=== PATIENT | female | born 1960 | race Caucasian/White ===

== ENCOUNTER 2019-04-26 08:45 | Observation (INO) ==
--- NOTE | 2019-04-19 11:51 | PAT Medication Instructions ---
Medication Instructions Date of Service April 19, 2019 Home Medications [Calcium 600 + D(3)] 1 cap PO BID diclofenac sodium 75 mg PO BID docusate sodium [Stool Softener] 250 mg PO BID folic acid 1 mg PO TID hydrocodone-acetaminophen 0.5 tab PO Q6H PRN methotrexate sodium 10 mg PO WK [Multivitamin Women 50 Plus] 1 tab PO QAM multivitamin 1 tab PO QAM prednisone 1 mg PO QAM prednisone 5 mg PO QPM tramadol 50 mg PO Q6H PRN ASK your surgeon for instructions diclofenac sodium 75 mg PO BID ASK your prescriber and surgeon methotrexate sodium 10 mg PO WK DO NOT take the morning of surgery [Calcium 600 + D(3)] 1 cap PO BID docusate sodium [Stool Softener] 250 mg PO BID folic acid 1 mg PO TID [Multivitamin Women 50 Plus] 1 tab PO QAM multivitamin 1 tab PO QAM Take morning of surgery With a small sip of water, OTHERWISE NOTHING TO EAT OR DRINK AFTER MIDNIGHT: hydrocodone-acetaminophen 0.5 tab PO Q6H PRN (if needed, may be taken up to four hours before surgery) prednisone 1 mg PO QAM tramadol 50 mg PO Q6H PRN (if needed, may be taken up to four hours before surgery) Take evening before surgery [Calcium 600 + D(3)] 1 cap PO BID diclofenac sodium 75 mg PO BID docusate sodium [Stool Softener] 250 mg PO BID folic acid 1 mg PO TID hydrocodone-acetaminophen 0.5 tab PO Q6H PRN (if needed) prednisone 5 mg PO QPM tramadol 50 mg PO Q6H PRN (if needed) Other Notes If you have any questions please call us at [phone] or [phone] or [phone] or [phone]
--- NOTE | 2019-04-19 12:04 | Anesthesiology Consultation ---
Date of Service April 19, 2019 Assessment & Plan (1) Encounter for pre-operative examination: *possible difficult intubation based on exam* Chart Review Chart Review: Acceptable Risk for Surgery and Patient seen in Pre Admission T pradeeping Teaching & Discussion Instructed NPO after midnight before surgery, except medications with 15 cc of water. Medication instructions provided according to the PAT guidelines. History Surgery Operation Date: 04/26/19 10:20 Proposed Procedures p L3-L4, L4-L5, L5-S1 Laminectomy - Elmer Manning DO Height/Weight Height: 5 ft 2 in Weight: 55.9 kg Allergies Allergy/AdvReac Type Severity Reaction Status Date / Time oxycodone Allergy Mild Urticaria Verified 12/17/14 10:51 Medications Home Medications Medication Instructions Recorded Confirmed Last Taken calcium carbonate-vitamin D3 1 cap PO BID 04/13/19 04/13/19 Unknown [Calcium 600 + D(3)] diclofenac sodium 75 mg PO BID 04/13/19 04/13/19 Unknown docusate sodium [Stool Softener] 250 mg PO BID 04/13/19 04/13/19 Unknown folic acid 1 mg PO TID 04/13/19 04/13/19 Unknown hydrocodone-acetaminophen 0.5 tab PO Q6H PRN 04/13/19 04/13/19 Unknown methotrexate sodium 10 mg PO WK 04/13/19 04/13/19 Unknown [id number]-zsd-owox-FA-lutein 1 tab PO QAM 04/13/19 04/13/19 Unknown [Multivitamin Women 50 Plus] multivitamin 1 tab PO QAM 04/13/19 04/13/19 Unknown prednisone 1 mg PO QAM 04/13/19 04/13/19 Unknown prednisone 5 mg PO QPM 04/13/19 04/13/19 Unknown tramadol 50 mg PO Q6H PRN 04/13/19 04/13/19 Unknown Past Medical History Medical History Degenerative disc disease BACK Numbness TIPS OF FINGERS On prednisone therapy Osteoarthritis Rheumatoid arthritis Exercise / Class Metabolic Activity IV < 2 Limit ADL/Bedbound (Currently using wheelchair, can "take a few steps;" 2/2 leg pain, has been this way for a few months) Past Family History Family History Grandmother (Maternal) Family history of diabetes mellitus Aunt Family history of diabetes mellitus Past Surgical History Surgical History History of right hip replacement History of total right knee replacement 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 Hx of foot surgery X6 - 3 ON EACH FOOT Past Anesthesia History No Hx of Anesthesia Complications and No Family Hx of Anesthesia Complications History of PONV No Hx of Motion Sickness and History of PONV (single episode of vomiting after TKA) Social History Smoking Status: Never smoker Do You Dip or Chew Tobacco: No Hx Alcohol Use: No Hx Substance Use: No Review of Systems Pt denies any recent chest pain, shortness of breath, palpitations, cough, fever or URI. Physical Exam Vital Signs BP: 137/72 P: 70bpm SPO2: 95% RA T: 98.3 F R: 14 ENMT Mouth: + small oral opening; no dental restorations, no chipped teeth and no loose teeth Thyromental Distance: < 3.5 Finger Breadths (3) Mallampati Class: III Neck + short neck and + limited neck extension (moderately) Respiratory normal respiratory effort Auscultation: lungs clear to auscultation bilaterally Cardiovascular Rate/Rhythm: regular rate and regular rhythm Heart Sounds: no murmur Vessels: no carotid bruit Extremities: no edema Musculoskeletal B/L hand deformity 2/2 RA. R BKA with plastic prosthesis. Testing Laboratory Results 04/19/19 12:15 04/19/19 12:15 04/19/19 12:15 PT 10.3 INR 1.0 APTT 25.1 Electrocardiogram Date: 04/19/19 Findings: + NSR @ (69) Chest X-Ray Date: 04/19/19 Findings: + NAD Cervical Spine Date: 04/19/19 IMPRESSION: 1. Progressive reversal of the normal lordotic curvature of the cervical spine. This is secondary to progressive anterolisthesis of C3 on C4 and C4 on C5 which measures 3 mm. However, the alignment remains unchanged throughout flexion and extension. 2. There is mild widening at the C1-C2 interval measuring up to 3 mm. However, this could be due to the suspected basilar invagination. This is new from the prior study. 3. Progressive moderate to severe degenerative disease within the cervical spine as described above.
--- NOTE | 2019-04-19 12:42 | XRay Report ---
XR chest Pre-admission PA/Lat CLINICAL HISTORY: Preoperative evaluation. COMPARISON STUDY: Chest radiograph July 28, 2011. FINDINGS: Severe osteoarthritis of both glenohumeral joints is incidentally noted. Lung volumes are a t the upper limits of normal. There is no consolidation. There is no evidence for pulmonary edema. Ca rdiac size is normal. Mediastinal contours are normal. The appearance of the chest is unchanged. IMPRESSION: No acute cardiopulmonary findings. Electronically signed by: Edilson Toscano M.D. 04/19/2019 12:40 PM
--- NOTE | 2019-04-19 12:48 | XRay Report ---
XR cervical spine 2 or 3V CLINICAL HISTORY: pre-op RA; lateral neutral/flexion/extension COMPARISON STUDY: Cervical spine 11/05/2010. FINDINGS: The cervical spine is visualized from C1 through the superior endplate of T1. Progressive r eversal of the normal lordotic curvature of the cervical spine. This is secondary to progressive ante rolisthesis of C3 on C4 and C4 on C5 which measures 3 mm. However, the alignment remains unchanged th roughout flexion and extension. There is mild widening at the C1-C2 interval measuring up to 3 mm. Ho wever, this could be due to the suspected basilar invagination. Moderate to severe disc space narrowi ng at C3-C4, C4-C5, C5-C6 has progressed. Mild disc space narrowing at C6-C7 is again noted. Advanced facet degenerative changes within the upper to mid cervical spine. Prevertebral soft tissues are int act. IMPRESSION: 1. Progressive reversal of the normal lordotic curvature of the cervical spine. This is secondary to progressive anterolisthesis of C3 on C4 and C4 on C5 which measures 3 mm. However, the alignment derrell ins unchanged throughout flexion and extension. 2. There is mild widening at the C1-C2 interval measuring up to 3 mm. However, this could be due to t he suspected basilar invagination. This is new from the prior study. 3. Progressive moderate to severe degenerative disease within the cervical spine as described above. Electronically signed by: Giovanny Brink M.D. 04/19/2019 12:46 PM
[2019-04-19 13:00] LABS: Basophils # (auto) 0.03 K/uL (0-0.2); Basophils % (auto) 0.3 %; Eosinophils # (auto) 0.35 K/uL (0-0.5); Eosinophils % (auto) 3.8 %; Hematocrit (blood only) 36.7 % (37-47); Hemoglobin 12.7 g/dL (12.0-16.0); Immature Granulocytes # (auto) 0.02 K/uL (0.00-0.02); Immature Granulocytes % (auto) 0.2 %; Lymphocytes # (auto) 3.24 K/uL (1.2-3.4); Lymphocytes % (auto) 35.3 %; Mean Corpuscular Hgb Conc 34.6 g/dL (32-36); Mean Corpuscular Volume 101.7 fL (80-100); Mean Platelet Volume 8.7 fL (7.4-10.4); Monocytes # (auto) 0.79 K/uL (0.11-0.59); Monocytes % (auto) 8.6 %; Neutrophils # (auto) 4.74 K/uL (1.4-6.5); Neutrophils % (auto) 51.8 %; Platelet Count 231 K/uL (130-400); RDW Coefficient of Variation 13.4 % (11.5-14.5); RDW Standard Deviation 49.3 fL (36.4-46.3); Red Blood Count 3.61 M/uL (4.2-5.4); White Blood Count 9.17 K/uL (4.8-10.8)
[2019-04-19 13:09] LABS: Partial Thromboplastin Ratio 0.9; Partial Thromboplastin Time 25.1 Seconds (21.0-31.0); Prothrombin Time 10.3 Seconds (9.0-12.0)
[2019-04-19 13:10] LABS: BUN Creatinine Ratio 23.2 (10-20); Calcium 10.7 mg/dl (8.5-10.1); Est GFR (African American) 72.8; Est GFR (Non-African American) 62.8; Potassium 3.8 mmol/L (3.5-5.1)
--- NOTE | 2019-04-25 09:17 | History and Physical Report ---
DATE OF ADMISSION: 04/26/2019 CHIEF COMPLAINT: Low back pain, lower extremity difficulty, paresthesias, neurogenic claudication, inability to ambulate. HISTORY OF PRESENT ILLNESS: Nilda is delightful. She is petite. She is failing conservative care. She has profound claudication, profound stenosis, and walking inability. She is only 58 years old. MEDICAL HISTORY: Positive for rheumatoid arthritis. PAST SURGICAL HISTORY: Includes knee surgery, right and left hip replacement, partial amputation, foot surgeries. ALLERGIES: Negative. FAMILY HISTORY: Heart disease. SOCIAL HISTORY: She is . No alcohol or tobacco. REVIEW OF SYSTEMS: Twelve systems review no fever, sweats, chills, no bowel and bladder issues. No pain, cough, sneeze. Denies any bowel and bladder incontinence. OBJECTIVE: GENERAL: She is alert, oriented. She is 5 and 130 pounds. VITAL SIGNS: Blood pressure 120/80, pulse 80, respirations 16. She is crippled with rheumatoid arthritis. CARDIAC: Normal S1, S2, no S3. LUNGS: Clear to auscultation. No rales, rhonchi or wheezing. ABDOMEN: Soft, nontender. MUSCULOSKELETAL: She has weakness of quadriceps, weakness with dorsiflexion, absent reflexes, no upper motor neuron issues. ASSESSMENT: Severe spinal stenosis, profound rheumatoid arthritis of the spine. PLAN: Includes a lumbar spine decompression, laminectomy of the lumbar spine L3-S1.
[~2019-04-26 08:45] MED LIST: CEFAZOLIN 2000MG 2,000 MG/15 ML SYR IV SCH; LR 15ML/HR IV SCH; SODIUM CHLORIDE 0.9% 1000ML 1,000 ML IV SCH
[2019-04-26] MEDS ORDERED: ROCURONIUM BROMIDE 10 MG/ML 5 ML VIAL ONE (09:11)
[2019-04-26] MEDS ORDERED: MIDAZOLAM HCL 1 MG/ML 2ML VIAL ONE (09:11)
[2019-04-26] MEDS ORDERED: PROPOFOL IV EMULSION 10 MG/ML 20 ML VIAL IV ONE (09:11)
[2019-04-26] MEDS ORDERED: fentaNYL citrate 100 MCG/2 ML VIAL ONE (09:11)
[2019-04-26] MEDS ORDERED: DEXAMETHASONE SOD INJ 4 MG/ML VIAL ONE (09:11)
[2019-04-26] MEDS ORDERED: ONDANSETRON INJ 2 MG/ML 2 ML VIAL ONE (09:11)
[2019-04-26] MEDS ORDERED: LIDOCAINE HCL 2% 2 ML VIAL/AMP(20MG/ML) INFIL ONE (09:11)
[2019-04-26] MEDS ORDERED: BUPIVACAINE/EPINEPHRINE 0.5% MPF 1:200,000 30 ML VIAL ONE (09:59)
[2019-04-26] MEDS ORDERED: VANCOMYCIN HCL 1000MG/20ML VIAL ONE (09:59)
[2019-04-26] MEDS ORDERED: GELATIN SPONGE SZ 100 ONE (10:00)
[2019-04-26] MEDS ORDERED: BACITRACIN INJ 50,000 UNIT VIAL ONE (10:00)
[2019-04-26] MEDS ORDERED: THROMBIN FOR SOLN 20000 UNIT KIT ONE (10:00)
--- NOTE | 2019-04-26 10:08 | History & Physical Bridge Note ---
Date of Service April 26, 2019 History & Physical Bridge Note I have examined the patient, reviewed the History & Physical and in the interval since the performance of the History & Physical I have noted the following changes of clinical significance: no changes noted
[2019-04-26] MEDS ORDERED: SODIUM CHLORIDE 0.9% INJ 10 ML VIAL ONE (10:52)
[2019-04-26] MEDS ORDERED: NEOSTIGMINE METHYLSULFATE 5 MG/5 ML SYR ONE (10:52)
[2019-04-26] MEDS ORDERED: HYDROmorphone INJ 2 MG/ML SYR/VIAL ONE (10:52)
[2019-04-26] MEDS ORDERED: GLYCOPYRROLATE 0.2 MG/ML VIAL ONE (10:52)
[2019-04-26] MEDS ORDERED: ePHEDrine sulfate 50 MG/ML SYR ONE (11:05)
--- NOTE | 2019-04-26 11:59 | Fluoroscopy Report ---
FL spine 1V any level CLINICAL HISTORY: L3-L4,L4-L5,L5-S1 LAMINECTOMY COMPARISON STUDY: X-ray study dated 01/07/2017 FLUOROSCOPY TIME: 6 seconds. NUMBER OF FLUOROSCOPIC IMAGES: 1 FINDINGS: A single intraoperative fluoroscopic spot images of the lumbar spine in the lateral project ion was obtained. There are pedicle screws present at the L3, L4, and L5 levels. IMPRESSION: Intraoperative fluoroscopic spot film demonstrating pedicle screws at the L3, L4, and L5 levels. Electronically signed by: Yon Mitchell M.D. 04/26/2019 11:58 AM
[2019-04-26] MEDS ORDERED: DURASEAL DURAL SEALANT 5ML TOP ONE (12:08)
--- NOTE | 2019-04-26 12:45 | Post Operative Brief Note ---
Immediate Post Op Note v1 Date of Surgery April 26, 2019 Pre & Post Diagnosis Operation Date: 04/26/19 10:50 Pre-Op Diagnosis: LUMBAR DISC HERNIATION, STENOSIS Post-Op Diagnosis: LUMBAR DISC HERNIATION, STENOSIS Procedure Operation Date: 04/26/19 10:50 Actual Procedures p L3-L4, L4-L5, L5-S1 Decompression and Fusion(Not Applicable) - Elmer Manning DO Pedicle screw instrumentation Surgeon Elmer Manning DO Cdl Truck Driver [email or web address] Estimated Blood Loss 250 Findings Consistent with Post-Op Diagnosis profound stenosis and spondylolisthesis, instability Drains Muller Catheter and Hemovac Drain Anesthesia Type General Complications none Disposition Accompanied Patient To Recovery: Yes Overlapping Procedure I was immediately available: during the entire case.
--- NOTE | 2019-04-26 13:20 | Anesthesiology Progress Note ---
Date of Service April 26, 2019 Anesthesia Post Procedure Vital Signs Vital Signs: Temp Pulse Resp BP Pulse Ox 04/26/19 13:15 96 H 18 130/71 96 04/26/19 13:05 90 15 135/80 95 04/26/19 12:55 90 15 140/70 95 04/26/19 12:45 36.5 C 89 16 125/88 95 04/26/19 09:24 37 C 80 20 151/89 H 96 Pain Intensity Lower Back: Pain Intensity: 3 Transfer of Care Handoff Completed per policy Notes Mental Status: alert / awake / arousable Patient Amnestic to Procedure: Yes Nausea / Vomiting: adequately controlled Pain: adequately controlled Airway Patency, RR, SpO2: stable & adequate BP & HR: stable & adequate Hydration State: stable & adequate Anesthetic Complications: no major complications apparent
[2019-04-26] MEDS ORDERED: ONDANSETRON INJ 2 MG/ML 2 ML VIAL IV PRN (13:50)
[2019-04-26] MEDS ORDERED: MAGNESIUM HYDROXIDE SUSP 30 ML UDC PO PRN (13:50)
[2019-04-26] MEDS ORDERED: PROMETHAZINE HCL 12.5 MG in SODIUM CHLORIDE 0.9% 50 ML IV PRN (13:50)
[2019-04-26] MEDS ORDERED: HYDROmorphone INJ 0.5 MG/0.5 ML SYR IV PRN (13:50)
[2019-04-26] MEDS: HYDROCODONE/ACETAMOPHEN 5/325MG TAB PO PRN (14:01)
[2019-04-26] MEDS: FOLIC ACID 1 MG TAB PO SCH ×2 (15:24→20:15)
[2019-04-26] MEDS: KETOROLAC 30 MG/ML VIAL IV SCH ×2 (15:24→20:15)
[2019-04-26] MEDS: CEFAZOLIN 2000MG 2,000 MG/15 ML SYR IV SCH (17:40)
[2019-04-26] MEDS: DOCUSATE SODIUM/SENNA 50/8.6MG TAB PO SCH (20:15)
[2019-04-26] MEDS: DOCUSATE SODIUM 100 MG CAP PO SCH (20:15)
[2019-04-26] MEDS: predniSONE 5 MG TAB PO SCH (20:15)
[2019-04-26] MEDS: SODIUM CHLORIDE 0.9% 1000ML 1,000 ML IV SCH (20:19)
[2019-04-27] MEDS: KETOROLAC 30 MG/ML VIAL IV SCH ×2 (00:54→08:08)
[2019-04-27] MEDS: CEFAZOLIN 2000MG 2,000 MG/15 ML SYR IV SCH (01:04)
[2019-04-27] MEDS: SODIUM CHLORIDE 0.9% 1000ML 1,000 ML IV SCH (07:10)
--- NOTE | 2019-04-27 07:56 | Operative Report ---
DATE OF OPERATION: 04/26/2019 PREOPERATIVE DIAGNOSIS: Severe spinal stenosis lumbar spine spondylolisthesis, lumbar spine, possibly grade 2 L3-L4, disc space collapse, cauda equina symptoms. POSTOPERATIVE DIAGNOSIS: Severe spinal stenosis lumbar spine spondylolisthesis, lumbar spine, possibly grade 2 L3-L4, disc space collapse, cauda equina symptoms. DESCRIPTION OF PROCEDURE: The patient was carefully marked in the preop holding area. I had mentioned to her and to her family that we will do a good decompression of the spinal elements. I also mentioned in the preop holding area that it is a possibility that a fusion technologies including pedicle screw instrumentation may be required with surgery. She was brought back to the Operating Room, a general intubated anesthetic provided to the patient. Muller catheter administered. Antibiotics administered, placed prone, scrubbed, prepped and draped sterile. Formal timeout taken. I made a skin incision, fascial incision. We dissected the soft tissue to the lamina. I did a formal laminectomy L2-3, L3-4 and L4-5 of the lumbar spine. All nerve roots were free of compression. I felt at that time that her spondylolisthesis had worsened to a slight degree and I harvested a significant amount of facet joint in the decompression. This led to an instability pattern of the spondylolisthesis. I thought it was quite significant for the patient. The spondylolisthesis was at L3-4. I then made the decision to instrument the spine, safely getting pedicle screws into L3, L4 and L5 lumbar spine bilaterally. The fit was anatomic. I was pleased with the decompression and pleased with the anatomical fit of the screws. We put in a longitudinal stefania 65 mm in length. We tightened the caps down on the longitudinal stefania. At the L3 pedicle on the right hand side my hand slipped off the cap animation artist. It hit the dura and there was a dural laceration at this point in time. We finished tightening in the stefania. We put the patient in Trendelenburg. We irrigated. I was able to get all nerve roots into the dural sac. I was able to get a watertight closure. I was able to patch this as well without incident. I even put the patient through a Valsalva and there was no evidence of dural fluid leaking. We then irrigated thoroughly with about 500 mL of fluid. We bone grafted out over the transverse processes, placed Gelfoam over the dural structures, closed fascia to fascia with #1 Vicryl suture, 2-0 in the subcuticular layer, 3-0 nylon on the skin. Sterile dressings applied. On the Vicryl layer I actually did a running continuous #1 Vicryl suture to get a watertight closure of the fascial layer. Sterile dressings applied. The patient returned supine, was extubated to PACU stable. COMPLICATIONS: 1. Inadvertent tear of the dura on my part. 2. Comorbidities of osteoporosis. Sponge and needle count correct. IMPLANTS USED: By the [employer]. There were no apparent other problems with anesthesia or blood pressure or medical. I attest to the content of the Intraoperative Record and any orders documented therein. Any exception s are noted below.
[2019-04-27] MEDS: DOCUSATE SODIUM 100 MG CAP PO SCH ×2 (08:09→21:28)
[2019-04-27] MEDS: predniSONE 1 MG TAB PO SCH (08:09)
[2019-04-27] MEDS: FOLIC ACID 1 MG TAB PO SCH ×3 (08:09→21:27)
--- NOTE | 2019-04-27 10:32 | Anesthesiology Progress Note ---
Date of Service April 27, 2019 Anesthesia Post Procedure Vital Signs Vital Signs: Temp Pulse Pulse Resp BP BP Pulse Ox 04/27/19 06:56 37.2 C 86 18 94/58 L 96 04/27/19 03:15 36.9 C 89 14 108/65 98 04/26/19 23:29 37.0 C 84 14 98/63 L 95 04/26/19 19:20 37.0 C 98 H 16 126/71 92 04/26/19 18:59 99 04/26/19 16:48 36.4 C L 90 14 103/67 98 04/26/19 15:48 37.0 C 90 14 101/66 98 04/26/19 14:49 89 18 115/71 93 04/26/19 14:16 97 H 18 146/75 H 94 04/26/19 13:45 37.1 C 90 18 132/78 94 04/26/19 13:25 94 H 18 133/71 96 04/26/19 13:15 96 H 18 130/71 96 04/26/19 13:05 90 15 135/80 95 04/26/19 12:55 90 15 140/70 95 04/26/19 12:45 36.5 C 89 16 125/88 95 Pain Intensity Lower Back: Pain Intensity: 4 Notes Mental Status: alert / awake / arousable and participated in evaluation Patient Amnestic to Procedure: Yes Nausea / Vomiting: adequately controlled Pain: adequately controlled Airway Patency, RR, SpO2: stable & adequate BP & HR: stable & adequate Hydration State: stable & adequate Anesthetic Complications: no major complications apparent
[2019-04-27] MEDS: HYDROCODONE/ACETAMOPHEN 5/325MG TAB PO PRN ×2 (13:30→19:12)
[2019-04-27] MEDS: predniSONE 5 MG TAB PO SCH (21:29)
[2019-04-27] MEDS: DOCUSATE SODIUM/SENNA 50/8.6MG TAB PO SCH (21:29)
[2019-04-28] MEDS: HYDROCODONE/ACETAMOPHEN 5/325MG TAB PO PRN ×2 (01:56→08:03)
[2019-04-28] MEDS: predniSONE 1 MG TAB PO SCH (08:03)
[2019-04-28] MEDS: DOCUSATE SODIUM 100 MG CAP PO SCH (08:03)
[2019-04-28] MEDS: FOLIC ACID 1 MG TAB PO SCH (08:03)
--- NOTE | 2019-04-28 17:20 | Discharge Summary ---
She is alert and oriented, improved, taking p.o. She has had an uneventful hospital course. Vital signs stable, afebrile. She will be discharged home in improved and stable condition later on today. She has medications on her chart. She has instructions and precautions provided. All questions were answered.
[2019-05-02] MEDS ORDERED: metHOTREXate sodium 2.5 MG TAB PO SCH (09:00)
== END 2019-04-28 12:10 | disposition home or self-care (01) ==
LOC: ASU 08:45 → 3E 08:45

== ENCOUNTER 2019-08-13 10:22 | Observation (INO) ==
--- NOTE | 2019-08-10 11:33 | Anesthesiology Consultation ---
Date of Service August 10, 2019 Assessment & Plan (1) Encounter for pre-operative examination: Chart Review Chart Review: Acceptable Risk for Surgery and Patient NOT seen in Pre Admission Testing Consults Requested none History Surgery Operation Date: 08/13/19 12:00 Proposed Procedures p Lumbar Incision Wound Closure and Debridement - Elmer Manning DO Allergies Allergy/AdvReac Type Severity Reaction Status Date / Time Gold Salts Allergy Unknown Verified 06/25/19 14:09 teriparatide [From [employer]] Allergy Unknown Verified 06/25/19 14:08 oxycodone AdvReac Mild Urticaria Verified 06/25/19 10:54 Medications Home Medications Medication Instructions Recorded Confirmed Last Taken Calcium 600 + D(3) 1 cap PO BID 04/13/19 06/25/19 06/24/19 16:30 Multivitamin Women 50 Plus 1 tab PO QAM 04/13/19 06/25/19 06/24/19 08:00 diclofenac sodium 75 mg PO BID 04/13/19 06/25/19 06/24/19 22:00 docusate sodium [Stool Softener] 250 mg PO BID 04/13/19 06/25/19 06/24/19 22:00 folic acid 1 mg PO TID 04/13/19 06/25/19 06/24/19 16:30 hydrocodone-acetaminophen 0.5 tab PO Q6H PRN 04/13/19 06/25/19 06/23/19 methotrexate sodium 10 mg PO WK 04/13/19 06/25/19 05/25/19 prednisone 1 mg PO QAM 04/13/19 06/25/19 06/25/19 08:00 prednisone 5 mg PO QPM 04/13/19 06/25/19 06/24/19 16:30 Past Medical History Medical History Degenerative disc disease Numbness fingertips Osteoarthritis Rheumatoid arthritis on chronic prednisone Uses prosthesis left leg Past Family History Family History Grandmother (Maternal) Family history of diabetes mellitus Aunt Family history of diabetes mellitus Past Surgical History Surgical History History of difficult intubation L3-S1 laminectomy: 04/26/19: elective fiberoptic intubation due to very limited neck movement. 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 Hx of foot surgery X6 - 3 ON EACH FOOT Social History Smoking Status: Never smoker Hx Alcohol Use: No Hx Substance Use: No substance use type: does not use Testing Laboratory Results Laboratory Tests 06/19/19 06/19/19 06/19/19 16:53 16:53 16:53 WBC 12.41 H Hgb 11.5 L Hct 35.0 L Plt Count 280 INR 1.0 Sodium 143 Potassium 4.3 BUN 24 H Creatinine 1.10 Electrocardiogram Date: 04/19/19 Date: 04/19/19 + NSR @ (69) Chest X-Ray Date: 04/19/19 Date: 04/19/19 Findings: + NAD
--- NOTE | 2019-08-10 16:00 | History and Physical Report ---
DATE OF ADMISSION: 08/10/2019 HISTORY OF PRESENT ILLNESS: She is a 58-year-old female. She has a small pinhole area of her wound in the lumbar spine that would not quite heal. She has no true dehiscence, but slight seroma formation. We will clean this up on Tuesday, debrided and closed it. PAST MEDICAL HISTORY: Positive for severe rheumatoid arthritis. No COPD, diabetes or kidney disease. PAST SURGICAL HISTORY: Multiple joint replacements. ALLERGIES: Negative. SOCIAL HISTORY: . No alcohol, tobacco. Moderately active lifestyle, rheumatoid arthritis as far as ambulation. REVIEW OF SYSTEMS: Denies any fevers, sweats, chills, ear, nose and throat issues. Denies chest pain, palpitations. No asthma, wheezing. No nausea, vomiting, urgency, frequency. She has musculoskeletal back and buttock pain. MEDICATIONS: Prednisone, methotrexate, vitamins and Voltaren. OBJECTIVE: GENERAL: She is alert, oriented, afebrile. VITAL SIGNS: Blood pressure 130/80, pulse 80, respiration 16. HEENT: Pupils react to light and accommodation. Her skin is intact except for a small pinhole in the posterior aspect of her lumbar spine. CHEST: Clear to auscultation. No rales, rhonchi, wheezing. No adenopathy. ASSESSMENT: Small wound dehiscence. PLAN: Includes an I&D and surgical repair of the wound closure lumbar spine on 08/13/2019.
[~2019-08-13 10:22] MED LIST changes: -SODIUM CHLORIDE 0.9% 1000ML 1,000 ML IV SCH; +SODIUM CHLORIDE 0.9% 1000ML IV SCH
[2019-08-13] MEDS ORDERED: fentaNYL citrate 100 MCG/2 ML VIAL ONE ×2 (11:15→11:16)
[2019-08-13] MEDS ORDERED: MIDAZOLAM HCL 1 MG/ML 2ML VIAL ONE (11:15)
[2019-08-13] MEDS ORDERED: BACITRACIN INJ 50,000 UNIT VIAL ONE (11:57)
[2019-08-13] MEDS ORDERED: BUPIVACAINE/EPINEPHRINE 0.5% MPF 1:200,000 30 ML VIAL ONE (11:57)
[2019-08-13] MEDS ORDERED: ePHEDrine sulfate 50 MG/ML AMP IV PRN (11:58)
[2019-08-13] MEDS ORDERED: ONDANSETRON INJ 2 MG/ML 2 ML VIAL IV PRN ×2 (11:58→19:42)
[2019-08-13] MEDS ORDERED: ATROPINE SULFATE 0.1 MG/ML 10ML SYR IV PRN (11:58)
--- NOTE | 2019-08-13 12:12 | History & Physical Bridge Note ---
Date of Service August 13, 2019 History & Physical Bridge Note I have examined the patient, reviewed the History & Physical and in the interval since the performance of the History & Physical I have noted the following changes of clinical significance: no changes noted
[2019-08-13] MEDS ORDERED: HYDROCORTISONE SOD SUCCINATE 100 MG/2 ML VIAL ONE (12:38)
[2019-08-13] MEDS ORDERED: VANCOMYCIN HCL 1000MG/20ML VIAL ONE (12:47)
--- NOTE | 2019-08-13 13:10 | Post Operative Brief Note ---
PG Immediate Post Op with CF Date of Surgery August 13, 2019 Pre & Post Diagnosis Operation Date: 08/13/19 12:00 Pre-Op Diagnosis: Wound Dehiscence, Lumbar Spine Post-Op Diagnosis: Wound Dehiscence, Lumbar Spine Procedure Operation Date: 08/13/19 12:00 Actual Procedures p Lumbar Incision Wound Closure and Debridement(Not Applicable) - Elmer Manning DO Surgeon Elmer Manning DO Lead Php Developer [email or web address] Estimated Blood Loss 10 Findings Consistent with Post-Op Diagnosis Specimens Specimen Description: NONE PER SURGEON Drains Hemovac Drain Overlapping Procedure I was immediately available: during the entire case.
--- NOTE | 2019-08-13 13:15 | Post Operative Brief Note ---
PG Immediate Post Op with CF Date of Surgery August 13, 2019 Pre & Post Diagnosis Operation Date: 08/13/19 12:00 Pre-Op Diagnosis: Wound Dehiscence, Lumbar Spine Post-Op Diagnosis: Wound Dehiscence, Lumbar Spine Procedure Operation Date: 08/13/19 12:00 Actual Procedures p Lumbar Incision Wound Closure and Debridement(Not Applicable) - Elmer Manning DO Surgeon Elmer Manning DO Wind Turbine Machinist [email or web address] Estimated Blood Loss 10 Findings Consistent with Post-Op Diagnosis Specimens Specimen Description: NONE PER SURGEON Drains Hemovac Drain
[2019-08-13] MEDS: fentaNYL citrate 100 MCG/2 ML VIAL IV PRN ×2 (13:20→13:25)
--- NOTE | 2019-08-13 13:25 | Operative Report ---
DATE OF OPERATION: 08/13/2019 PREOPERATIVE DIAGNOSIS: Wound dehiscence, lumbar spine. POSTOPERATIVE DIAGNOSIS: Wound dehiscence, lumbar spine. PROCEDURE: Includes I and D and closure of lumbar spine wound. SURGEON: Elmer Manning DO. CONE WORKER: Ulysses Toro PA-C. COMPLICATIONS: Zero. BLOOD LOSS: 10 mL. DESCRIPTION OF PROCEDURE: The patient was taken to the operating room, a general intubated anesthetic provided to the patient, placed prone, scrubbed, prepped and draped sterile. I made a skin incision with subcuticular dissection. There was no true pus formation. We irrigated the wound out carefully. I debrided to clean skin edges. The wound was irrigated with approximately 500 mL of fluid. I closed the subcuticular layer with 2-0 Vicryl suture over a Hemovac drain and over vancomycin powder, 3-0 nylon on the skin. Sterile dressings applied. The patient returned to PACU improved, stable condition. There were no apparent complications. The patient was identified in preop holding area, marked and a bridge note provided. Preoperative antibiotics provided. Formal timeout provided. Sponge and needle count correct at the close. I attest to the content of the Intraoperative Record and any orders documented therein. Any exception s are noted below.
[2019-08-13] MEDS ORDERED: GLYCOPYRROLATE 0.2 MG/ML VIAL ONE (13:30)
[2019-08-13] MEDS ORDERED: PROPOFOL IV EMULSION 10 MG/ML 20 ML VIAL IV ONE (13:30)
[2019-08-13] MEDS ORDERED: ePHEDrine sulfate 50 MG/ML SYR ONE (13:30)
[2019-08-13] MEDS ORDERED: PHENYLEPHRINE 100MCG/ML 5ML SYR ONE (13:30)
[2019-08-13] MEDS ORDERED: ROCURONIUM BROMIDE 10 MG/ML 5 ML VIAL ONE (13:30)
[2019-08-13] MEDS ORDERED: LARYING-O-JET KIT (LTA) ONE (13:30)
[2019-08-13] MEDS ORDERED: LIDOCAINE HCL 2% 2 ML VIAL/AMP(20MG/ML) INFIL ONE (13:30)
[2019-08-13] MEDS ORDERED: ONDANSETRON INJ 2 MG/ML 2 ML VIAL ONE (13:30)
[2019-08-13] MEDS ORDERED: NEOSTIGMINE METHYLSULFATE 5 MG/5 ML SYR ONE (13:30)
--- NOTE | 2019-08-13 14:05 | Anesthesiology Progress Note ---
Date of Service August 13, 2019 Anesthesia Post Procedure Vital Signs Vital Signs: Temp Pulse Pulse Resp BP Pulse Ox 08/13/19 13:50 69 16 143/70 H 92 08/13/19 13:40 83 16 155/95 H 96 08/13/19 13:30 77 16 142/70 H 95 08/13/19 13:20 77 16 159/70 H 100 08/13/19 13:14 36.8 C 91 H 16 168/81 H 100 08/13/19 11:00 36.6 C 83 18 137/77 97 Transfer of Care Handoff Completed per policy Notes Mental Status: alert / awake / arousable and participated in evaluation Patient Amnestic to Procedure: Yes Nausea / Vomiting: adequately controlled Pain: adequately controlled Airway Patency, RR, SpO2: stable & adequate BP & HR: stable & adequate Hydration State: stable & adequate Anesthetic Complications: no major complications apparent and Pt Satisfied with anesthetic care
[2019-08-13] MEDS ORDERED: SODIUM CHLORIDE 0.9% 1000ML 1,000 ML IV SCH (14:24)
[2019-08-13] MEDS ORDERED: MAGNESIUM HYDROXIDE SUSP 30 ML UDC PO PRN (14:24)
[2019-08-13] MEDS ORDERED: OXYCODONE HCL IR 5 MG TAB (IMMEDIATE RELEASE) PO PRN (14:24)
[2019-08-13] MEDS ORDERED: ACETAMINOPHEN 1,000 MG/100 ML VIAL IV PRN (14:24)
[2019-08-13] MEDS: OXYCODONE HCL IR 5 MG TAB (IMMEDIATE RELEASE) PO PRN ×2 (16:25→21:33)
[2019-08-13] MEDS: INFLUENZA VIRUS QUAD VACCINE 0.5 ML SYR IM ONE (18:49)
[2019-08-13] MEDS: INFLUENZA ADMINISTRATION CHARGE ONE (18:50)
[2019-08-13] MEDS ORDERED: Nursing to Pharmacy Communication ONE (19:17)
[2019-08-13] MEDS: PATIENT'S HEIGHT AND/OR WEIGHT NEEDED SCH ×8 (19:35→23:19)
[2019-08-13] MEDS: CEFAZOLIN 2000MG 2,000 MG/15 ML SYR IV SCH (19:43)
[2019-08-13] MEDS: DOCUSATE SODIUM 100 MG CAP PO SCH (19:54)
[2019-08-13] MEDS: CALCIUM 600MG + VIT D 400 IU TAB PO SCH (19:54)
[2019-08-13] MEDS: FOLIC ACID 1 MG TAB PO SCH (19:55)
[2019-08-13] MEDS: SULFAMETHOXAZOLE/TRIMETHOPRIM DS 800/160MG TAB PO SCH (19:56)
[2019-08-13] MEDS: DICLOFENAC SODIUM 75 MG TABCR PO SCH (19:56)
[2019-08-13] MEDS ORDERED: predniSONE 5 MG TAB PO SCH (21:00)
[2019-08-14] MEDS: CEFAZOLIN 2000MG 2,000 MG/15 ML SYR IV SCH (03:27)
[2019-08-14] MEDS: INFLUENZA VIRUS QUAD VACCINE 0.5 ML SYR IM ONE (03:40)
[2019-08-14] MEDS: INFLUENZA ADMINISTRATION CHARGE ONE (03:42)
[2019-08-14] MEDS: DICLOFENAC SODIUM 75 MG TABCR PO SCH (08:21)
[2019-08-14] MEDS: DOCUSATE SODIUM 100 MG CAP PO SCH (08:21)
[2019-08-14] MEDS: FOLIC ACID 1 MG TAB PO SCH (08:21)
[2019-08-14] MEDS: CALCIUM 600MG + VIT D 400 IU TAB PO SCH (08:21)
[2019-08-14] MEDS: SULFAMETHOXAZOLE/TRIMETHOPRIM DS 800/160MG TAB PO SCH (08:21)
--- NOTE | 2019-08-14 08:25 | Anesthesiology Progress Note ---
Date of Service August 14, 2019 Anesthesia Post Procedure Vital Signs Vital Signs: Temp Pulse Pulse Resp BP Pulse Ox 08/14/19 07:40 36.7 C 61 16 129/77 08/14/19 03:40 36.6 C 70 16 137/80 93 08/13/19 22:55 36.7 C 72 16 125/83 92 08/13/19 19:47 36.9 C 69 16 109/72 92 08/13/19 17:22 36.7 C 77 16 126/82 91 08/13/19 16:23 36.5 C 86 17 113/69 99 08/13/19 15:26 36.5 C 76 17 127/78 94 08/13/19 14:50 81 15 153/81 H 95 08/13/19 14:33 36.4 C L 72 14 153/76 H 97 08/13/19 14:00 36.6 C 70 16 140/81 92 08/13/19 13:50 69 16 143/70 H 92 08/13/19 13:40 83 16 155/95 H 96 08/13/19 13:30 77 16 142/70 H 95 08/13/19 13:20 77 16 159/70 H 100 08/13/19 13:14 36.8 C 91 H 16 168/81 H 100 08/13/19 11:00 36.6 C 83 18 137/77 97 Pain Intensity Back: Pain Intensity: 4 Notes Mental Status: alert / awake / arousable and participated in evaluation Patient Amnestic to Procedure: Yes Nausea / Vomiting: adequately controlled Pain: adequately controlled Airway Patency, RR, SpO2: stable & adequate BP & HR: stable & adequate Hydration State: stable & adequate Anesthetic Complications: no major complications apparent and Pt Satisfied with anesthetic care
[2019-08-14] MEDS ORDERED: MULTIVITAMIN TAB PO SCH (09:00)
[2019-08-14] MEDS ORDERED: predniSONE 1 MG TAB PO SCH (09:00)
[2019-08-14] MEDS: OXYCODONE HCL IR 5 MG TAB (IMMEDIATE RELEASE) PO PRN (10:12)
[2019-08-15] MEDS ORDERED: metHOTREXate sodium 2.5 MG TAB PO SCH (09:00)
--- NOTE | 2019-08-22 08:06 | Discharge Summary ---
She was alert, oriented to time of discharge. Wound clean, dry. Vital signs currently stable. No shortness of breath, chest pain. Discharged home in improved stable condition. Followup examination in 1 week. She has instructions given in the office. Instructions given in the hospital.
== END 2019-08-14 10:25 | disposition home or self-care (01) ==
LOC: 3E 10:22 → ASU 10:22